=== PATIENT | male | born 1990 | race Caucasian/White ===

== ENCOUNTER 2017-01-01 00:47 | Observation (INO) | payer BC ==
[2017-01-01] VITALS (7 sets, daily range): BP systolic 125–154; BP diastolic 72–99; PULSE 69–86; TEMP 36.5–36.9; O2SAT 95–98; Ht 170.2 cm; Wt 57.6 kg
[~2017-01-01] VITALS: Ht 170.2 cm; Wt 57.6 kg
[~2017-01-01 00:47] MED LIST: CYPR4TAB31 PO; SERT50TA PO
[2017-01-01] MEDS ORDERED: SODIUM CHLORIDE 0.9% 1000ML 1,000 ML IV STA (01:02)
[2017-01-01] MEDS ORDERED: ONDANSETRON INJ 2 MG/ML 2 ML VIAL IV STA (01:02)
--- NOTE | 2017-01-01 01:19 | EMERGENCY ROOM VISIT NOTE ---
History Report prepared by Mele: Marci Lara Under the Supervision of: Dr. Rhett Deal M.D. First contact with patient: 00:56 Chief Complaint: ABDOMINAL PAIN Stated Complaint: SHARP PAIN RADIATING IN RT ABD/BACK,NAUSEA History of Present Illness The patient is a 26 year old male who presents to the Emergency Room with complaints of an episode of abdominal pain starting 3 days ago. He notes that the pain is worse with movement. He describes the pain as radiating. The patient complains of back pain, nausea, vomiting, and low grade fever. The patient denies this ever happening before, shortness of breath, chest pain, urinary symptoms, swelling in legs, taking anything for it, and any falls or recent injuries. Source of History: patient Onset: 3 days ago Position: abdomen Quality: other (radiating) Timing: other (episode) Modifying Factors (Worsening): movement Associated Symptoms: + fevers, + nausea, + vomiting, + back pain, No chest pain, No SOB, No urinary symptoms Note: The patient denies this ever happening before, swelling in legs, taking anything for it, and any falls or recent injuries. Review of Systems See HPI for pertinent positives & negatives. A total of 10 systems reviewed and were otherwise negative. Past Medical & Surgical Surgical Problems: (1) Hx of tonsillectomy Family History Cancer Gallbladder disease Heart disease Hypertension Kidney stones Lung disease Social History Smoking Status: Never Smoker Alcohol Use: none Marital Status: single Housing Status: lives with family Occupation Status: employed Current/Historical Medications No Active Prescriptions or Reported Meds Allergies Coded Allergies: No Known Allergies (Unverified , 01/01/17) Physical Exam Vital Signs Date Time Temp Pulse Resp B/P (MAP) Pulse Ox O2 Delivery O2 Flow Rate FiO2 01/01/17 04:44 87 18 138/98 96 Room Air 01/01/17 02:27 36.9 89 16 121/81 98 Room Air 01/01/17 00:53 37.4 97 20 143/96 99 Room Air Physical Exam GENERAL: Patient is uncomfortable appearing and in moderate distress. HEENT: No acute trauma, normocephalic atraumatic, mucous membranes moist, no nasal congestion, no scleral icterus. NECK: No stridor, no adenopathy, no meningismus, trachea is midline. LUNGS: No dyspnea. Clear to auscultation and equal bilaterally. No wheeze, no rhonchi. HEART: Regular rate and rhythm. No murmurs, rubs, gallops appreciated. ABDOMEN: Soft, bowel sounds positive, no masses appreciated, no peritonitis. Point tenderness over RUQ, worse with deep inspiration. BACK: No midline tenderness, no CVA tenderness EXTREMITIES: Normal motion all extremities, no cyanosis, no edema. NEUROLOGIC: Alert and oriented, no acute motor or sensory deficits, no focal weakness, cranial nerves grossly intact. SKIN: No rash, no jaundice, no diaphoresis. Medical Decision & Procedures ER Provider Diagnostic Interpretation: Radiology results and stated below per my review and radiologist interpretation: US RUQ: Probable gallbladder polyp versus non-shadowing stones within the gallbladder lumen measuring up to 4 mm. The gallbladder wall is mildly prominent measuring 3.3 mm, likely secondary to contracted state. No pericholecystic fluid. No definite evidence of acute cholecystitis. The partially visualized pancreas is unremarkable. The liver is unremarkable. The right kidney is unremarkable. CT Abdomen & Pelvis: Impression: The tip of the appendix is mildly thickened with circumferential thickening of its wall measuring up to 7 mm. There is question minimal adjacent stranding. Findings may represent early acute appendicitis in the correct clinical setting. Apparent bowel wall thickening of the small bowel which may represent nonspecific enteritis. Additional findings: The visualized lower thorax is unremarkable. The liver, gallbladder, spleen, pancreas, and adrenal glands are unremarkable. The kidneys , ureters and urinary bladder are unremarkable. No acute osseous abnormality. Radiologist: Bro Simons MD Study ready at 02:59 and initial results transmitted at 03:45. Laboratory Results 01/01/17 01:15 Red Blood Count 4.98, Mean Corpuscular Volume 88.4, Mean Corpuscular Hemoglobin 31.9, Mean Corpuscular Hemoglobin Concent 36.1, Mean Platelet Volume 10.1, Neutrophils (%) (Auto) 62.5, Lymphocytes (%) (Auto) 27.0, Monocytes (%) (Auto) 9.8, Eosinophils (%) (Auto) 0.3, Basophils (%) (Auto) 0.3, Neutrophils # (Auto) 5.55, Lymphocytes # (Auto) 2.40, Monocytes # (Auto) 0.87, Eosinophils # (Auto) 0.03, Basophils # (Auto) 0.03 8/21/17 01:15 Test 01/01/17 01:15 White Blood Count 8.89 K/uL (4.8-10.8) Red Blood Count 4.98 M/uL (4.7-6.1) Hemoglobin 15.9 g/dL (14.0-18.0) Hematocrit 44.0 % (42-52) Mean Corpuscular Volume 88.4 fL (80-100) Mean Corpuscular Hemoglobin 31.9 pg (25-34) Mean Corpuscular Hemoglobin Concent 36.1 g/dl (32-36) Platelet Count 263 K/uL (130-400) Mean Platelet Volume 10.1 fL (7.4-10.4) Neutrophils (%) (Auto) 62.5 % Lymphocytes (%) (Auto) 27.0 % Monocytes (%) (Auto) 9.8 % Eosinophils (%) (Auto) 0.3 % Basophils (%) (Auto) 0.3 % Neutrophils # (Auto) 5.55 K/uL (1.4-6.5) Lymphocytes # (Auto) 2.40 K/uL (1.2-3.4) Monocytes # (Auto) 0.87 K/uL (0.11-0.59) Eosinophils # (Auto) 0.03 K/uL (0-0.5) Basophils # (Auto) 0.03 K/uL (0-0.2) RDW Standard Deviation 40.0 fL (36.4-46.3) RDW Coefficient of Variation 12.5 % (11.5-14.5) Immature Granulocyte % (Auto) 0.1 % Immature Granulocyte # (Auto) 0.01 K/uL (0.00-0.02) Urine Color YELLOW Urine Appearance CLEAR (CLEAR) Urine pH 6.5 (4.5-7.5) Urine Specific [place] 1.025 (1.000-1.030) Urine Protein NEG (NEG) Urine Glucose (UA) NEG (NEG) Urine Ketones TRACE (NEG) Urine Occult Blood NEG (NEG) Urine Nitrite NEG (NEG) Urine Bilirubin NEG (NEG) Urine Urobilinogen NEG (NEG) Urine Leukocyte Esterase NEG (NEG) Urine WBC (Auto) 0 /hpf (0-5) Urine RBC (Auto) 0-4 /hpf (0-4) Urine Hyaline Casts (Auto) 0 /lpf (0-5) Urine Epithelial Cells (Auto) 0-5 /lpf (0-5) Urine Bacteria (Auto) NEG (NEG) Anion Gap 6.0 mmol/L (3-11) Est Creatinine Clear Calc Drug Dose 77.3 ml/min Estimated GFR () 97.5 Estimated GFR (Non- 84.1 BUN/Creatinine Ratio 10.8 (10-20) Calcium Level 9.0 mg/dl (8.5-10.1) Total Bilirubin 0.6 mg/dl (0.2-1) Direct Bilirubin 0.1 mg/dl (0-0.2) Aspartate Amino Transf (AST/SGOT) 11 U/L (15-37) Alanine Aminotransferase (ALT/SGPT) 24 U/L (12-78) Alkaline Phosphatase 74 U/L (45-117) Total Protein 7.8 gm/dl (6.4-8.2) Albumin 4.5 gm/dl (3.4-5.0) Lipase 227 U/L (73-393) Laboratory results as reviewed by me. Medications Administered Medications (Trade) Dose Ordered Sig/Abiodun Route Start Time Stop Time Status Last Admin Dose Admin Sodium Chloride 1,000 ml @ 999 mls/hr Q1H1M STAT IV 01/01/17 01:02 01/01/17 02:02 DC 01/01/17 01:16 999 MLS/HR Ondansetron HCl (Zofran Inj) 4 mg NOW STAT IV 01/01/17 01:02 01/01/17 01:04 DC 01/01/17 01:16 4 MG Cefoxitin Sodium (Mefoxin IV) 2,000 mg NOW STAT IV 01/01/17 03:54 01/01/17 03:55 DC 01/01/17 04:09 2,000 MG ED Course 0059: The patient was evaluated in room A10. A complete history and physical exam was performed. 0102: Ordered Zofran Inj 4 mg IV, NSS 1000 ml @ 999 mls/hr IV. 0240: I reevaluated the patient and he is still in pain. He notes that the pain radiates to his back and has mild nausea. I discussed risks and benefits of a CT scan including increased risk of cancer and risks of missing intraabdominal infections He wishes to proceed with the CT. 0353: Discussed the patient's case with Dr. Stone. The patient will be evaluated by Dr. Stone. 0354: Ordered Mefoxin IV 2000 mg IV. 0355: I updated the patient on his test results. 0423: Dr. Stone agrees that the patient's findings are consistent with appendicitis and will take to operating room. Medical Decision Differential: Cholecystitis, Gallbladder disfunction, Hepatic Disfunction, Gastritis/PUD, Renal Colic, Pancreatitis, ACS, Aortic Pathology, amongst other pathologies entertained. 26 yr old male arrives with complaint of RUQ pain radiating to back. Exam seems consistent with cholecystitis though he has no risk factors for this. While awaiting labs felt that US GB reasonable. US without evidence cholecystitis though small polyp noted. Labs unremarkable. Repeat exam he is still quite TTP over RUQ to the point where I felt CT imaging advised despite risks. Patient agrees to CT as well. CT with early appendicis in location consistent with pain. Gen Surg consulted. Patient given IV abx. Taken to OR in stable condition. Medication Reconcilliation Current Medication List: was personally reviewed by me Blood Pressure Screening Patient's blood pressure: Elevated blood pressure Blood pressure disposition: Elevated BP felt to be situational Consults Time Called: 035 Consulting Physician: Dr. Stone Returned Call: [phone] Discussed the patient's case with Dr. Stone. The patient will be evaluated for further treatment and disposition. Impression Primary Impression: Appendicitis Scribe Attestation The scribe's documentation has been prepared under my direction and personally reviewed by me in its entirety. I confirm that the note above accurately reflects all work, treatment, procedures, and medical decision making performed by me. Departure Information Dispostion Being Evaluated By Surgeon Prescriptions No Active Prescriptions or Reported Meds Referrals No Doctor, Assigned (PCP) Patient Instructions My [facility] Problem Qualifiers Primary Impression: Appendicitis Appendicitis type: acute appendicitis Acute appendicitis type: other Qualified Codes: K35.89 - Other acute appendicitis
[2017-01-01 01:47] LABS: URINE APPEARANCE CLEAR (CLEAR); URINE BILIRUBIN NEG (NEG); URINE COLOR YELLOW; URINE EPITHELIAL CELL AUTO 0-5 /lpf (0-5); URINE NITRITE NEG (NEG); URINE PH 6.5 (4.5-7.5); URINE SPECIFIC GRAVITY 1.025 (1.000-1.030); UROBILINOGEN NEG (NEG); ZZUR CULT IF INDIC CLEAN CATCH NO
[2017-01-01 01:48] LABS: BASO % 0.3 %; BASO ABS # 0.03 K/uL (0-0.2); COMPLETE YES; EOS % 0.3 %; IG% 0.1 %; MEAN CELL VOLUME 88.4 fL (80-100); MEAN CORPUSCULAR HEMOGLOBIN 31.9 pg (25-34); MEAN CORPUSCULAR HGB CONC 36.1 g/dl (32-36); MEAN PLATELET VOLUME 10.1 fL (7.4-10.4); MONO % 9.8 %; NEUT % 62.5 %; PLATELET COUNT 263 K/uL (130-400); RED BLOOD COUNT 4.98 M/uL (4.7-6.1); WHITE BLOOD COUNT 8.89 K/uL (4.8-10.8)
[2017-01-01 01:49] LABS: MANUAL MICROSCOPIC REQUIRED? NO; REVIEW REQ? NO
[2017-01-01 02:02] LABS: BUN/CREATININE RATIO 10.8 (10-20); CREATININE 1.2 mg/dl (0.60-1.40); POTASSIUM 3.4 mmol/L (3.5-5.1)
[2017-01-01] MEDS ORDERED: OPTIRAY 320 IV PRN (02:45)
[2017-01-01] MEDS ORDERED: CEFOXITIN SOD 2 GM VIAL IV STA (03:54)
--- NOTE | 2017-01-01 04:23 | History and Physical ---
History & Physical Date Jan 01, 2017. History of Present Illness The patient is a 26 year old male with complaints of Rt sided abd pain some nausea over 24-[address]- mild inflammation of appendix Past Medical/Surgical History Surgical Problems: (1) Hx of tonsillectomy Additional History Hepatic Disease: No Endocrine Disorder: No Kidney Disease: No Hypertension: No Heart Disease: No Bleeding Tendencies: No Infectious Diseases: No Allergies Coded Allergies: No Known Allergies (Unverified , 01/01/17) Home Medications No Active Prescriptions or Reported Meds Physical Examination Skin: warm/dry Eyes: sclerae normal Head: atraumatic Neck: supple Respiratory/Chest: no respiratory distress Cardiovascular: regular rate, rhythm Abdomen / GI: + pertinent finding (tender to palpation to Rt of umbilicus) Extremities: normal inspection Neurologic/Psych: alert Diagnosis acute appendicitis Plan of Treatment pt with abd pain c/w acute appendicitis- for laparoscopic appendectomy, possible open operation
[2017-01-01] MEDS ORDERED: CISATRACURIUM BESYLATE IV SOLN 2 MG/ML 10 ML VIAL ONE (05:00)
[2017-01-01] MEDS ORDERED: PROPOFOL IV EMULSION 10 MG/ML 20 ML VIAL IV ONE (05:00)
[2017-01-01] MEDS ORDERED: SUCCINYLCHOLINE 100MG/5ML SYR IV ONE (05:00)
[2017-01-01] MEDS ORDERED: BUPIVACAINE 0.5 % 5 MG/1 ML MPF 30ML VIAL ONE (05:00)
[2017-01-01] MEDS ORDERED: MIDAZOLAM HCL 1 MG/ML 2ML VIAL ONE (05:01)
[2017-01-01] MEDS ORDERED: FENTANYL CITRATE INJ 50 MCG/1 ML 2 ML VIAL ONE ×2 (05:01→05:02)
[2017-01-01] MEDS ORDERED: ONDANSETRON INJ 2 MG/ML 2 ML VIAL ONE ×2 (05:14→06:44)
[2017-01-01] MEDS ORDERED: DEXAMETHASONE SOD INJ 4 MG/ML VIAL ONE (05:15)
[2017-01-01] MEDS ORDERED: NEOSTIGMINE METHYLSULFATE 5 MG/5 ML SYR ONE (06:14)
[2017-01-01] MEDS ORDERED: GLYCOPYRROLATE INJ 0.2 MG/ML VIAL ONE (06:14)
--- NOTE | 2017-01-01 06:29 | [facility] Operative Report ---
Operative Report Operative Date Jan 01, 2017. Pre-Operative Diagnosis Acute Appendicitis Post-Operative Diagnosis Acute Appendicitis Procedure(s) Performed Laparoscopic Appendectomy Surgeon Dr. Stone Estimated Blood Loss 5cc Findings dilated , inflamed appendix- no perforation Specimens A. Appendix Anesthesia gen Complication(s) None Disposition Recovery Room / PACU I attest to the content of the Intraoperative Record and any orders documented therein. Any exceptions are noted below.
[2017-01-01] MEDS ORDERED: ACETAMINOPHEN IV 100 ML IV STA (06:41)
[2017-01-01] MEDS ORDERED: ONDANSETRON INJ 2 MG/ML 2 ML VIAL IV PRN ×2 (06:45)
[2017-01-01] MEDS ORDERED: IBUPROFEN 600 MG TAB PO PRN (06:45)
[2017-01-01] MEDS ORDERED: PROMETHAZINE HCL INJ 12.5 MG in SODIUM CHLORIDE 0.9% 50ML 50 ML IV PRN ×2 (06:45)
[2017-01-01] MEDS ORDERED: EpHEDrine SULFATE INJ 50 MG/ML AMP IV PRN (06:45)
[2017-01-01] MEDS ORDERED: ATROPINE SULFATE 0.1 MG/ML 5ML SYR IV PRN (06:45)
[2017-01-01] MEDS ORDERED: NALOXONE HCL 0.4 MG/1 ML VIAL/CARP IV PRN (06:45)
[2017-01-01] MEDS ORDERED: FLUMAZENIL 0.1 MG/1 ML 10 ML VIAL IV PRN (06:45)
[2017-01-01] MEDS ORDERED: PROMETHAZINE HCL INJ 25 MG in SODIUM CHLORIDE 0.9% 50ML 50 ML IV PRN (06:45)
[2017-01-01] MEDS ORDERED: HYDROCODONE/ACETAMOPHEN 5/325MG TAB PO PRN (06:45)
[2017-01-01] MEDS ORDERED: HYDROmorphone INJ 1 MG/ML SYR IV PRN (06:45)
[2017-01-01] MEDS ORDERED: IV FLUIDS COMPLETED PRN (07:00)
--- NOTE | 2017-01-01 07:06 | DIAGNOSTIC IMAGING REPORT ---
GALLBLADDER-ABD LIMITED HISTORY: 26 years-old Male acute right upper quadrant abdominal pain, fevers, vomiting COMPARISON: CT abdomen and pelvis of same day TECHNIQUE: Multiple real-time sonographic images of the abdominal right upper quadrant were obtained assessing grayscale appearance and color flow FINDINGS: Image pancreas is unremarkable with distal body and tail obscured by bowel gas. The imaged liver appears to be within normal limits. No biliary ductal dilation is identified. There is an echogenic non-shadowing focus along the dependent mid gallbladder wall measuring up to 4 mm. Gallbladder is partially contracted, likely due to recent oral intake. No pericholecystic fluid identified. Sonographic Pruitt sign reported as negative. No shadowing gallstones are identified. Common bile duct measures 2.4 cm. The imaged right kidney appears normal. IMPRESSION: 1. Mildly contracted gallbladder lumen is likely secondary to recent oral intake. No shadowing cholelithiasis or evidence of acute cholecystitis. 2. 4 mm non-shadowing focus along the dependent gallbladder wall suggests adherent sludge ball or small cholesterol polyp. 3. No biliary ductal dilation. The above report was generated using voice recognition software. It may contain grammatical, syntax or spelling errors. Electronically signed by: Leonid Marin M.D. 01/01/2017 7:05 AM Dictated Date/Time: 01/01/2017 7:01 AM
[2017-01-01] MEDS ORDERED: HYDROmorphone INJ 2 MG/ML SYR/VIAL ONE (07:11)
--- NOTE | 2017-01-01 07:13 | Anesthesiology Progress Note ---
Anesthesia Post Op Note Date & Time Jan 01, 2017 at 07:13 Vital Signs Pain Intensity: 2 Vital Signs Past 12 Hours Date Time Temp Pulse Resp B/P (MAP) Pulse Ox O2 Delivery O2 Flow Rate FiO2 01/01/17 07:05 66 18 118/85 100 Oxymask 2 01/01/17 06:56 69 18 133/96 100 5 01/01/17 06:50 87 18 132/80 100 5 01/01/17 06:45 84 18 118/105 100 10 01/01/17 06:41 37.4 96 18 108/96 100 Oxymask 10 01/01/17 04:44 87 18 138/98 96 Room Air 01/01/17 02:27 36.9 89 16 121/81 98 Room Air 01/01/17 00:53 37.4 97 20 143/96 99 Room Air Notes Mental Status: alert / awake / arousable, participated in evaluation Pt Amnestic to Procedure: Yes Nausea / Vomiting: adequately controlled Pain: adequately controlled Airway Patency, RR, SpO2: stable & adequate BP & HR: stable & adequate Hydration State: stable & adequate Anesthetic Complications: no major complications apparent
--- NOTE | 2017-01-01 07:30 | DIAGNOSTIC IMAGING REPORT ---
ABD/PELVIS IV CONTRAST ONLY CLINICAL HISTORY: 26 years-old Male presenting with RUQ pain, fever, vomiting, radiating to flank.. TECHNIQUE: Multidetector CT of the abdomen and pelvis was performed after the administration of intravenous contrast. IV contrast: 92 mL of Optiray 320. A dose lowering technique was used consistent with the principles of ALARA (as low as reasonably achievable). COMPARISON: Ultrasound from 01/01/2017. CT DOSE (mGy.cm): The estimated cumulative dose is 262.39 mGy.cm. 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 Lung bases: Lung bases clear. No pericardial or pleural effusion. Fat-containing left Bochdalek hernia. Liver: Normal morphology. No liver lesion. Patent hepatic vasculature. Biliary: No intrahepatic or extrahepatic biliary ductal dilatation. Normal gallbladder. Pancreas: Normal. Spleen: Within normal limits, measuring 12 cm in axial sagittal dimension. Adrenal glands: Normal. Kidneys and ureters: No nephrolithiasis. No hydronephrosis. Normal ureters. Bladder: Normal. Pelvic organs: Prostate and seminal vesicles normal. Bowel: The appendix contains gas and fluid with gas noted at the tip of the appendix. The appendiceal diameter measures up to 6 mm, which is within the range of normal. No convincing appendiceal wall hyperenhancement or thickening. No convincing periappendiceal fat stranding. No periappendiceal fluid collection. No bowel obstruction. Allowing for the absence of oral contrast, no convincing evidence of small bowel wall thickening. Stomach normal. Peritoneal cavity: No free fluid or intraperitoneal gas. Vasculature: Aorta and IVC patent and normal in caliber. Lymph nodes: Few subcentimeter prominent right lower quadrant mesenteric lymph nodes without associated fat stranding. No pathologically enlarged lymph nodes in the abdomen or pelvis. Abdominal wall: Normal. Musculoskeletal: Normal. IMPRESSION: 1. No convincing evidence of appendicitis or acute intra-abdominal pathology. Allowing for the absence of oral contrast, no evidence of bowel wall thickening. Notably these findings are slightly discrepant to the preliminary report, which suggested early acute appendicitis and small bowel wall thickening. 2. Few subcentimeter right lower quadrant mesenteric lymph nodes, nonspecific and likely reactive. 3. No nephrolithiasis. Electronically signed by: Derik Toth M.D. 01/01/2017 7:28 AM Dictated Date/Time: 01/01/2017 7:20 AM
--- NOTE | 2017-01-01 08:22 | OPERATIVE REPORT ---
DATE OF OPERATION: 01/01/2017 NAME OF OPERATION: Laparoscopic appendectomy. PREOPERATIVE DIAGNOSIS: Acute appendicitis. POSTOPERATIVE DIAGNOSIS: Same. STAFF SURGEON: Dr. Stone. ANESTHESIA: General. DESCRIPTION OF PROCEDURE: The patient was brought in the operating room and placed on the operating table in a supine position. His abdomen was prepped and draped in usual fashion after a Lopez catheter was placed. His skin and subcutaneous tissue were anesthetized at all incisions using 0.5% plain Marcaine. Incision was made above the umbilicus, carrying dissection down, placing a Veress needle producing pneumoperitoneum. A 5 mm port was placed at this level and then the camera passed. Under visualization, a 5 mm port was placed suprapubically and a 12 mm port placed in left lower quadrant. Cecum was reflected. The base of the appendix was identified. The appendix was retrocecal. A window was fashioned at the base of the appendix and then using the Endo-OUMAR stapler, a castle load was used to transect the base the mesentery was dissected free and then transected using an Endo-OUMAR stapler. There was a small amount of tissue remaining in the retroperitoneum this was clipped with a 10 mm clipper. The appendix showed no evidence of perforation or abscess. The site was irrigated and aspirated. The appendix was placed into an Endobag and then removed through the left lower quadrant site. Again after appropriate irrigation and hemostasis, all ports were removed. The left lower quadrant fascia closed using interrupted 0 Vicryl suture and 0 Vicryl suture was placed in the umbilical site fascia also to close the fascia. Skin at the umbilicus and suprapubic area closed using subcuticular 4-0 Monocryl and Dermabond. Left lower quadrant closed using 4-0 Monocryl and Steri-Strips. The patient was transferred to recovery room in stable condition. I attest to the content of the Intraoperative Record and any orders documented therein. Any exceptions are noted below. DONNIE
[2017-01-01] MEDS: LACTATED RINGER'S 1000ML 1,000 ML IV SCH ×2 (08:24→19:19)
[2017-01-01] MEDS: HYDROmorphone INJ 0.5 MG/0.5 ML SYR IV PRN (08:33)
[2017-01-01] MEDS: HYDROmorphone INJ 1 MG/ML SYR IV PRN ×3 (11:33→19:19)
[2017-01-01] MEDS ORDERED: CEFOXITIN IV 1,000 MG in DEXTROSE 5% 50ML 50 ML IV SCH (12:00)
[2017-01-01] MEDS: HYDROCODONE/ACETAMOPHEN 5/325MG TAB PO PRN ×2 (13:45→23:20)
[2017-01-01] MEDS ORDERED: NURSING VERBAL MED ORDER ONE (14:45)
[2017-01-02] MEDS: HYDROmorphone INJ 0.5 MG/0.5 ML SYR IV PRN ×2 (00:45→01:18)
[2017-01-02 04:00] VITALS: BP 134/80; PULSE 73; TEMP 36.8; O2SAT 100
[2017-01-02] MEDS ORDERED: HYDR-5688 PO (05:26)
[2017-01-02] MEDS ORDERED: OXYC-57 PO (06:13)
[2017-01-02] MEDS ORDERED: OXYCODONE/ACETAMINOPHEN 5-325 TAB PO PRN ×2 (06:15)
--- NOTE | 2017-01-02 06:17 | Discharge Instructions ---
Discharge Instructions Date of Service Jan 02, 2017. Admission Reason for Admission: Appendicitis Discharge Discharge Diagnosis / Problem: acute appendicitis Discharge Goals Goal(s): Decrease discomfort, Improve function, Improve disease control Activity Recommendations Activity Limitations: as noted below Lifting Limitations: no more than 25 pounds Exercise/Sports Limitations: until after follow-up appointment May Resume Sexual Activity: when tolerated Shower/Bathe: tomorrow Driving or Machine Use: resume 3 days after discharge SPECIAL CARE INSTRUCTIONS: * Cover incisions and change daily for comfort/drainage. May leave uncovered with dermabond * Leave steri strips in place Avoid constipation- may use Senokot S and Milk of magnesia twice daily as directed on the package * May use ibuprofen for pain as tolerated. * Expect some swelling and bruising. Call your doctor if: * Temperature above 101 degrees * Pain not relieved by pain medicine ordered * There is increased drainage or redness from any incision * You have any unanswered questions or concerns [phone]. FOLLOW UP VISIT: If not already scheduled, please call the office for a follow-up visit. for next week- check up- no sutures to remove OFFICE PHONE NUMBER: Dr. Stone Office . Current Hospital Diet Patient's current hospital diet: Regular Diet Discharge Diet Recommended Diet: Regular Diet Procedures Procedures Performed: Laparoscopic Appendectomy Pending Studies Studies pending at discharge: no Medical Emergencies . Who to Call and When: Medical Emergencies: If at any time you feel your situation is an emergency, please call 911 immediately. . Non-Emergent Contact Non-Emergency issues call your: Primary Care Provider, Surgeon . "Provider Documentation" section prepared by Eric Stone. . VTE Core Measure Inpt VTE Proph given/why not?: SCD's
[2017-01-02] MEDS ORDERED: MoRPHine SULFATE 2 MG/ML CARP IV PRN (06:30)
[2017-01-02] MEDS ORDERED: MoRPHine SULFATE 4 MG/ML 1 ML CARP\\VIAL IV PRN (06:30)
[2017-01-02 07:28] VITALS: BP 134/80; PULSE 73; TEMP 36.8; O2SAT 100
[2017-01-02 07:34] VITALS: BP 113/66; PULSE 80; TEMP 36.7; O2SAT 95
[2017-01-02] MEDS ORDERED: DOCUSATE SODIUM/SENNA 50/8.6MG TAB PO SCH (08:00)
--- NOTE | 2017-01-03 12:42 | DISCHARGE SUMMARY ---
PRIMARY DISCHARGE DIAGNOSIS: Acute appendicitis. HOSPITAL COURSE: The patient is a 26-year-old male who presented to the Emergency Department with 2 days of right lower quadrant pain. CT suggested early acute appendicitis. White count was 18,000. His exam was consistent with appendicitis. He was taken to the operating room that morning for laparoscopic appendectomy. The procedure was well tolerated. He was transferred to the surgical floor, kept on IV Mefoxin and overnight observation. The next day, he was tolerating diet and oral analgesics. His exam was benign. He was stable for discharge. DISCHARGE INSTRUCTIONS: Discharge home. Follow up with Dr. Stone in 2 weeks. DISCHARGE MEDICATIONS: Percocet 1-2 tablets every 6 hours as needed.
== END 2017-01-02 08:13 | disposition home or self-care (01) ==
LOC: C.EDB 00:48 → C.MSW 06:31
PROVIDERS: ADMIT Surgery; ATTEND Surgery
DX: K35.80 Unspecified acute appendicitis (principal); R03.0 Elevated blood-pressure reading, without diagnosis of hypertension; Z82.49 Family history of ischemic heart disease and other diseases of the circulatory system; Z84.1 Family history of disorders of kidney and ureter; Z83.6 Family history of other diseases of the respiratory system

== ENCOUNTER → 2017-07-03 | Outpatient (CLI) | payer BC ==
[~2017-07-03] MED LIST changes: -CYPR4TAB31 PO; +OXYC-57 PO; -SERT50TA PO
--- NOTE | 2017-07-03 11:20 | DIAGNOSTIC IMAGING REPORT ---
BILIARY ULTRASOUND CLINICAL HISTORY: Right upper quadrant abdominal pain COMPARISON STUDY: December 2016 FINDINGS: The pancreas appears sonographically normal. The liver appears sonographically normal. There is no ductal dilatation. There is a 4 mm echogenic nonshadowing nonmobile focus within the gallbladder. This remains unchanged the prior study. This likely represents a small polyp. The common bile duct measures 3 mm. There is no right-sided hydronephrosis. IMPRESSION: Stable 4 mm gallbladder polyp. No shadowing calculi identified. No evidence of ductal dilatation. Electronically signed by: Hoang Julio M.D. 07/03/2017 11:19 AM Dictated Date/Time: 07/03/2017 11:17 AM
== END | disposition home or self-care (01) ==
LOC: C.ULTR 10:17
PROVIDERS: ATTEND Nurse Practitioner
DX: K82.4 Cholesterolosis of gallbladder (principal); R11.0 Nausea; R10.13 Epigastric pain; R10.11 Right upper quadrant pain

== ENCOUNTER → 2017-07-10 | Outpatient (CLI) | payer BC ==
[~2017-07-10] MED LIST changes: -OXYC-57 PO; +SINCALIDE IV ONE; +SODIUM CHLORIDE 0.9% IV ONE
--- NOTE | 2017-07-10 12:49 | DIAGNOSTIC IMAGING REPORT ---
HEPATOBILIARY EF IMAGING CLINICAL HISTORY: 27 years-old Male with RUQ ABD PAIN,NAUSEA EPIGASTRIC PAIN. Acute right upper quadrant abdominal pain TECHNIQUE: Following the intravenous administration of 5.6 mCi of technetium-99m Choletec, sequential abdominal images were obtained. In order to evaluate the contractile response of the gallbladder, 1.16 mcg of Kinevac was administered by slow intravenous infusion over 30 min starting approximately 60 min after the administration of the radiopharmaceutical. Sequential imaging was continued for 45 min after the start of the Kinevac infusion. COMPARISON: Right upper quadrant ultrasound 07/03/2017 FINDINGS: There is prompt, uniform accumulation of the tracer by the liver. There is normal filling of the intrahepatic ducts, common bile duct and gallbladder and normal excretion of the tracer into the duodenum. There is adequate contraction of the gallbladder. The calculated gallbladder ejection fraction is 83% (normal >40%). There is no significant enterogastric reflux. IMPRESSION: 1. Normal contractile response of the gallbladder to Kinevac infusion. 2. Normal biliary imaging study. The above report was generated using voice recognition software. It may contain grammatical, syntax or spelling errors. Electronically signed by: Leonid Marin M.D. 07/10/2017 12:48 PM Dictated Date/Time: 07/10/2017 12:45 PM
== END | disposition home or self-care (01) ==
LOC: C.NUCL 10:20
PROVIDERS: ATTEND Nurse Practitioner
DX: R11.0 Nausea (principal); R10.13 Epigastric pain; R10.11 Right upper quadrant pain

== ENCOUNTER → 2018-01-03 | Day surgery (SDC) | payer BC ==
--- NOTE | 2018-01-01 08:41 | History and Physical: Surg Cnt ---
History & Physical Date Jan 01, 2018. Chief Complaint nasal obstruction History of Present Illness The patient is a 27 year old male with complaints of deviated septum Past Medical/Surgical History Surgical Problems: (1) Hx of tonsillectomy Additional History Hepatic Disease: No Endocrine Disorder: No Kidney Disease: No Hypertension: No Heart Disease: No Bleeding Tendencies: No Infectious Diseases: No Allergies Coded Allergies: No Known Allergies (Unverified , 01/01/17) Diagnosis septal deviation Plan of Treatment septoplasty, Celon turbinates
[2018-01-02 08:05] VITALS: Ht 170.2 cm; Wt 60.0 kg
[~2018-01-03] VITALS: Ht 170.2 cm; Wt 60.0 kg
[~2018-01-03] MED LIST changes: +ASCO10003 PO; +ATROPINE SULFATE 0.1 MG/ML 5ML SYR IV PRN; +BACITRACIN OINT 15 GM TUBE ONE; +CEFAZOLIN 1000MG IV PUSH 7.5 ML IV SCH; +CETI10TA84 PO; +CHOL2000 PO; +CYAN100020 PO; +DEXAMETHASONE SOD INJ 4 MG/ML VIAL ONE; +EpHEDrine SULFATE INJ 50 MG/ML AMP IV PRN; +EpINEphrine INJ 1MG/ML AMP 1 MG/ML AMP ONE; +FENTANYL CITRATE INJ 50 MCG/1 ML 2 ML VIAL ONE; +FLUMAZENIL 0.1 MG/1 ML 10 ML VIAL IV PRN; +FLUT0.15 INTNAS; +GELATIN SPONGE 12-7MM ONE; +GLYCOPYRROLATE INJ 0.2 MG/ML VIAL ONE; +IBUP-1050 PO; +LACTATED RINGER'S 1000ML 1,000 ML IV SCH; +LIDO 2%/EPINEPHRINE 1:100000 20 ML VIAL ONE; +LIDOCAINE 4% MPF SOAK 5 ML = 1 DOSE ONE; +LIDOCAINE HCL 2% 2 ML VIAL (20MG/ML) ONE; +MIDAZOLAM HCL 1 MG/ML 2ML VIAL ONE; +NALOXONE HCL 0.4 MG/1 ML VIAL/CARP IV PRN; +NEOSTIGMINE METHYLSULFATE 5 MG/5 ML SYR ONE; +ONDANSETRON INJ 2 MG/ML 2 ML VIAL IV PRN; +ONDANSETRON INJ 2 MG/ML 2 ML VIAL ONE; +OXYC-57 PO; +OXYCODONE/ACETAMINOPHEN 5-325 TAB PO PRN; +PROMETHAZINE HCL INJ 12.5 MG in SODIUM CHLORIDE 0.9% 50ML 50 ML IV PRN; +PROPOFOL IV EMULSION 10 MG/ML 20 ML VIAL ONE; +ROCURONIUM BROMIDE 10 MG/ML 5 ML VIAL ONE; -SINCALIDE IV ONE; +SODIUM CHLORIDE 0.9% 1000ML 1,000 ML IV SCH; -SODIUM CHLORIDE 0.9% IV ONE; +SUDAFED PO
--- NOTE | 2018-01-03 06:52 | History & Physical Bridge Note ---
H&P Re-Evaluation Bridge Note: I have examined the patient, reviewed the History & Physical and in the interval since the performance of the History & Physical I have noted the following changes of clinical significance: No changes noted
--- NOTE | 2018-01-03 11:36 | Discharge Instructions-[facility]urgCtr ---
Discharge Instructions Date of Service Jan 03, 2018. Visit Reason for Visit: Septal Deviation Discharge Discharge Diagnosis / Problem: same Discharge Goals Goal(s): Improve function Activity Recommendations Activity Limitations: per Instructions/Follow-up section Anesthesia . Post Anesthesia Instructions: If you have had General Anesthesia or IV Sedation: * Do not drive today. * Resume driving when surgeon permits. * Do not make important decisions or sign legal documents today. * Call surgeon for: 1. Temperature elevations greater than 101 degrees F. 2. Uncontrollable pain. 3. Excessive bleeding. 4. Persistent nausea and vomiting. 5. Medication intolerance (nausea, vomiting or rash). * For nausea and vomiting use only clear liquids such as: tea, soda, bouillon until nausea subsides, then gradually increase diet as tolerated. * If you have any concerns or questions, call your surgeon's office. If physician is unavailable and it is an emergency, call 911 or go to the nearest emergency room. . Instructions / Follow-Up Instructions / Follow-Up ACTIVITY RECOMMENDATIONS: * Being up and around is good, but no strenuous activity, heavy lifting or physical exertion for one week. * Keep your head elevated 30 degrees when lying down or sleeping. * Do not blow your nose for 48 hours, sniff back instead. * Avoid hot showers. OVER THE COUNTER MEDICATIONS: * You may use Tylenol * Avoid aspirin or aspirin containing products, e.g. as they may increase bleeding. SPECIAL CARE INSTRUCTIONS: * Expect to have bloody drainage from your nose and/or down your throat for one to three days. Change drip pad as needed. * Begin irrigating your nose with saline solution today, at least six to ten times per day and sniff back to help remove old clots or crust. * You may experience nasal and facial congestion, pain and pressure, this is normal. * Please call with any significant and/or progressive pain, redness, swelling around the eyes, visual changes, fever of 101.5 degrees F, active bleeding or any problems or concerns. * If active bleeding occurs, spray the nose three times at one minute intervals with Afrin spray and call or cell phone: . If unable to reach the doctor, go to the nearest Emergency Department. Special Diet: * Avoid extremely hot fluids. FOLLOW UP VISIT: Follow-up Visit with Dr. Lantigua If not already scheduled, please call to schedule. Diet Recommendations Home Diet: resume previous diet Pending Studies Studies pending at discharge: no Medical Emergencies . Who to Call and When: Medical Emergencies: If at any time you feel your situation is an emergency, please call 911 immediately. . Non-Emergent Contact Non-Emergency issues call your: Primary Care Provider . . "Provider Documentation" section prepared by Vivian Lantigua. [facility] [place] [facility] Search Results: no issues identified
[2018-01-03] MEDS: FENTANYL CITRATE INJ 50 MCG/1 ML 2 ML VIAL IV PRN ×4 (12:54→13:14)
--- NOTE | 2018-01-03 13:19 | Anesthesia Progress Nt - [facility] ---
Anesthesia Post Op Note Date & Time Jan 03, 2018 at 13:19 Vital Signs Pain Intensity: 0 Vital Signs Past 12 Hours Date Time Temp Pulse Resp B/P (MAP) Pulse Ox O2 Delivery O2 Flow Rate FiO2 01/03/18 12:27 36.7 89 14 162/83 99 Humidified Oxygen 5 01/03/18 10:16 36.8 63 16 135/75 (95) 96 Room Air Notes Mental Status: alert / awake / arousable, participated in evaluation Pt Amnestic to Procedure: Yes Nausea / Vomiting: adequately controlled Pain: adequately controlled Airway Patency, RR, SpO2: stable & adequate BP & HR: stable & adequate Hydration State: stable & adequate Anesthetic Complications: no major complications apparent
[2018-01-03 13:28] VITALS: BP 158/94; PULSE 77; TEMP 36.8; O2SAT 94
--- NOTE | 2018-01-04 07:55 | OPERATIVE REPORT ---
DATE OF OPERATION: 01/03/2018 PREOPERATIVE DIAGNOSES: Septal deviation, chronic rhinitis. POSTOPERATIVE DIAGNOSES: Septal deviation, chronic rhinitis. PROCEDURES: Septoplasty and radiofrequency volume reduction of the inferior turbinates. SURGEON: Vivian Lantigua MD ANESTHESIA: General endotracheal. COMPLICATIONS: None. BLOOD LOSS: 30 mL. HISTORY OF PRESENT ILLNESS: This gentleman presented with chronic left-sided nasal obstruction, septal deviation to the left. DESCRIPTION OF PROCEDURE: The patient brought to the operating room and placed in supine position. General endotracheal anesthesia was induced, prepped, draped in usual sterile manner. The nose was decongested using cottonoids with a topical solution of 4 mL of 4% Xylocaine mixed with 1 mL of adrenalin. Injection of 2% Xylocaine with 1:100,000 strength epinephrine was also used. The inferior turbinates were treated with radiofrequency volume reduction using the [employer] machine creating 4 lesions in each inferior turbinate with the setting at 18. The inferior turbinates were fractured laterally. A left hemitransfixion incision was made. Mucoperichondrium elevated off the left side of the septum. Superior inferior tunnels were elevated and the cartilage from the vomer maxillary crest and also posteriorly from the perpendicular plate of the ethmoid. Bilateral posterior tunnels were made and the large bony cartilaginous spur projecting to the left was removed using the [place] dissector, the V-shaped osteotome, the Kenny-Jhoana rongeurs and the [place] forceps returning the septum to the midline. The septum was closed using a continuous mattress suture of 4-0 plain gut. Anterior nasal packing of Gelfoam was placed. The patient tolerated procedure well, was taken to recovery area in satisfactory condition. I attest to the content of the Intraoperative Record and any orders documented therein. Any exception s are noted below.
== END | disposition home or self-care (01) ==
LOC: X.SURG 09:56
PROVIDERS: ATTEND Otolaryngology
DX: J34.2 Deviated nasal septum (principal); J31.0 Chronic rhinitis; K21.9 Gastro-esophageal reflux disease without esophagitis